=== PATIENT | female | born 1985 | race Asian ===

== ENCOUNTER 2018-05-06 04:00 | Observation (INO) | payer OTHER ==
[~2018-05-06] VITALS: Ht 152.4 cm; Wt 60.0 kg
[2018-05-06 05:08] LABS: BASOPHILS # (AUTO) 0.06 x10^3/uL (0-0.1); BASOPHILS % (AUTO) 1 % (0-1); EOSINOPHILS % (AUTO) 1 % (1-7); LYMPHOCYTES # (AUTO) 2.85 x10^3/uL (1-3.4); LYMPHOCYTES % (AUTO) 24 % (22-44); MD NO; MEAN CORPUSCULAR HGB CONC 34.7 g/dL (32.4-35.8); MEAN CORPUSCULAR VOLUME 89.3 fL (80-100); MONOCYTES # (AUTO) 0.61 x10^3/uL (0.2-0.8); MONOCYTES % (AUTO) 5 % (2-9); NEUTROPHILS # (AUTO) 8.45 x10^3/uL (1.8-6.8); NEUTROPHILS % (AUTO) 70 % (42-75); PLATELET COUNT 226 x10^3/uL (130-400); RED CELL DISTRIBUTION WIDTH 12.9 % (9.6-15.2)
== END 2018-05-06 08:27 | disposition home or self-care (01) ==
LOC: LDOP 04:00 → LDIP 05:28
PROVIDERS: ADMIT Obstetrics & Gynecology; ATTEND Obstetrics & Gynecology
DX: O46.93 Antepartum hemorrhage, unspecified, third trimester (principal); Z3A.28 28 weeks gestation of pregnancy
CPT/HCPCS: 36415; 59025; 76805; 85025; 86850; 86900; G0378

== ENCOUNTER 2018-06-13 11:43 | Inpatient (IN) | payer OTHER ==
[~2018-06-13] VITALS: Ht 152.4 cm; Wt 59.7 kg
[2018-06-13 11:50] VITALS: BP 106/58
[2018-06-13] MEDS ORDERED: BETAMETHASONE 6 MG/ML, 5ML IM ONE (12:07)
[2018-06-13] MEDS: BETAMETHASONE 6 MG/ML, 5ML IM SCH (12:14)
[2018-06-13 12:15] VITALS: BP 106/58
[2018-06-13 12:48] LABS: BASOPHILS # (AUTO) 0.03 x10^3/uL (0-0.1); BASOPHILS % (AUTO) 0 % (0-1); EOSINOPHILS # (AUTO) 0.02 x10^3/uL (0-0.4); EOSINOPHILS % (AUTO) 0 % (1-7); LYMPHOCYTES # (AUTO) 2.64 x10^3/uL (1-3.4); LYMPHOCYTES % (AUTO) 23 % (22-44); MD NO; MEAN CORPUSCULAR HGB CONC 34.1 g/dL (32.4-35.8); MEAN PLATELET VOLUME 6.9 fL (7.4-10.4); MONOCYTES # (AUTO) 0.64 x10^3/uL (0.2-0.8); MONOCYTES % (AUTO) 6 % (2-9); NEUTROPHILS # (AUTO) 8.21 x10^3/uL (1.8-6.8); NEUTROPHILS % (AUTO) 71 % (42-75); PLATELET COUNT 216 x10^3/uL (130-400); RED BLOOD COUNT 4.27 x10^6/uL (3.82-5.3); RED CELL DISTRIBUTION WIDTH 13.2 % (9.6-15.2)
[2018-06-13] MEDS ORDERED: DOCU-131 PO (12:52)
[2018-06-13] MEDS ORDERED: PREN1TAB60 PO (12:53)
[2018-06-13] MEDS ORDERED: [UNRECOGNIZED DRUG - MIXTURE] PO (12:55)
[2018-06-13] MEDS ORDERED: TERBUTALINE 1 MG/ML, 1ML ONE (13:52)
[2018-06-13] MEDS ORDERED: TERBUTALINE 1 MG/ML, 1ML SQ ONE (14:00)
[2018-06-13] MEDS ORDERED: LACTATED RINGERS 1,000 ML IVBOLUS ONE (14:00)
[2018-06-13] MEDS: SODIUM CHLORIDE FLUSH 3ML SYRINGE IVF SCH ×2 (14:16→21:00)
[2018-06-13] MEDS ORDERED: DOCUSATE 100 MG CAPSULE PO SCH (21:00)
[2018-06-13] MEDS ORDERED: DOCUSATE 100 MG CAPSULE ONE (22:33)
[2018-06-13] MEDS: DOCUSATE 100 MG CAPSULE PO SCH (22:50)
[2018-06-14] MEDS: SODIUM CHLORIDE FLUSH 3ML SYRINGE IVF SCH ×2 (07:25→20:34)
[2018-06-14 07:28] VITALS: BP 92/55
[2018-06-14] MEDS ORDERED: PRENATAL VIT/IRON/FA 1 EACH TABLET ONE (09:07)
[2018-06-14] MEDS: PRENATAL VIT/IRON/FA 1 EACH TABLET PO SCH (09:30)
[2018-06-14] MEDS: BETAMETHASONE 6 MG/ML, 5ML IM SCH (13:09)
[2018-06-14] MEDS: CAL MAG PO SCH (14:30)
[2018-06-14] MEDS ORDERED: INSULIN REGULAR 100 UNITS/ML, 3ML VIAL SQ-INSULIN STA (18:18)
[2018-06-14] MEDS ORDERED: ONDANSETRON 2MG/ML, 2ML IVPush PRN (18:30)
[2018-06-14] MEDS ORDERED: ACETAMINOPHEN 325 MG TABLET PO PRN (18:30)
[2018-06-14] MEDS ORDERED: CALCIUM CARBONATE 500 MG TAB.CHEW PO PRN (18:30)
[2018-06-14] MEDS: DOCUSATE 100 MG CAPSULE PO SCH (21:00)
[2018-06-15] MEDS ORDERED: PRENATAL VIT/IRON/FA 1 EACH TABLET PO SCH (09:00)
[2018-06-15] MEDS: PRENATAL VIT/IRON/FA 1 EACH TABLET PO SCH (09:00)
[2018-06-15] MEDS: SODIUM CHLORIDE FLUSH 3ML SYRINGE IVF SCH ×2 (09:00→21:00)
[2018-06-15] MEDS: DOCUSATE 100 MG CAPSULE PO SCH (21:00)
[2018-06-16] MEDS: CAL MAG PO SCH (09:00)
[2018-06-16] MEDS: PRENATAL VIT/IRON/FA 1 EACH TABLET PO SCH (09:00)
[2018-06-16] MEDS: SODIUM CHLORIDE FLUSH 3ML SYRINGE IVF SCH ×2 (09:56→21:00)
[2018-06-16] MEDS: POLYETHYLENE GLYCOL 17 GM PACKET PO SCH (09:59)
[2018-06-16 20:11] VITALS: BP 102/54
[2018-06-16] MEDS: DOCUSATE 100 MG CAPSULE PO SCH (21:00)
[2018-06-17] MEDS: DOCUSATE 100 MG CAPSULE PO SCH (21:00)
[2018-06-17] MEDS: SODIUM CHLORIDE FLUSH 3ML SYRINGE IVF SCH ×2 (21:00→21:05)
[2018-06-17] MEDS ORDERED: DOCUSATE 100 MG CAPSULE ONE (21:09)
[2018-06-18] MEDS: SODIUM CHLORIDE FLUSH 3ML SYRINGE IVF SCH ×2 (08:52→21:13)
[2018-06-18] MEDS: PRENATAL VIT/IRON/FA 1 EACH TABLET PO SCH (08:53)
[2018-06-18 08:55] VITALS: BP 114/57
[2018-06-18] MEDS: POLYETHYLENE GLYCOL 17 GM PACKET PO SCH ×2 (09:00→09:18)
[2018-06-18] MEDS: CAL MAG PO SCH (09:00)
[2018-06-18] MEDS: DOCUSATE 100 MG CAPSULE PO SCH (09:41)
[2018-06-18] MEDS: SODIUM CHLORIDE NASAL SPRAY 45ML BOTTLE NAS PRN (15:37)
[2018-06-18 20:00] VITALS: BP 110/56
[2018-06-19 02:47] LABS: BASOPHILS # (AUTO) 0.04 x10^3/uL (0-0.1); BASOPHILS % (AUTO) 0 % (0-1); EOSINOPHILS # (AUTO) 0.06 x10^3/uL (0-0.4); EOSINOPHILS % (AUTO) 1 % (1-7); LYMPHOCYTES # (AUTO) 3.22 x10^3/uL (1-3.4); LYMPHOCYTES % (AUTO) 26 % (22-44); MD NO; MEAN CORPUSCULAR HEMOGLOBIN 30.2 pg (27.0-34.8); MEAN CORPUSCULAR HGB CONC 34.6 g/dL (32.4-35.8); MEAN CORPUSCULAR VOLUME 87.3 fL (80-100); MEAN PLATELET VOLUME 6.7 fL (7.4-10.4); MONOCYTES # (AUTO) 0.75 x10^3/uL (0.2-0.8); MONOCYTES % (AUTO) 6 % (2-9); NEUTROPHILS % (AUTO) 67 % (42-75); PLATELET COUNT 276 x10^3/uL (130-400); RED CELL DISTRIBUTION WIDTH 12.9 % (9.6-15.2)
[2018-06-19] MEDS ORDERED: LACTATED RINGERS 1,000 ML IV SCH (04:00)
[2018-06-19] MEDS: CAL MAG PO SCH (09:00)
[2018-06-19] MEDS ORDERED: METOCLOPRAMIDE 5 MG/ML, 2ML ONE (19:13)
[2018-06-19] MEDS ORDERED: SODIUM CITRATE/CITRIC ACID 30 ML UDC ONE (19:13)
[2018-06-19] MEDS: SODIUM CHLORIDE FLUSH 3ML SYRINGE IVF SCH (19:15)
[2018-06-19 19:18] VITALS: BP 110/54
[2018-06-20] MEDS: SODIUM CHLORIDE NASAL SPRAY 45ML BOTTLE NAS PRN (07:00)
[2018-06-20] MEDS: SODIUM CHLORIDE FLUSH 3ML SYRINGE IVF SCH ×2 (07:41→21:00)
[2018-06-20 07:45] VITALS: BP 110/64
[2018-06-20] MEDS: CAL MAG PO SCH ×2 (09:00→17:52)
[2018-06-20] MEDS: POLYETHYLENE GLYCOL 17 GM PACKET PO SCH (09:00)
[2018-06-20] MEDS: PRENATAL VIT/IRON/FA 1 EACH TABLET PO SCH ×2 (09:00→09:08)
[2018-06-20] MEDS ORDERED: SENNA/DOCUSATE TABLET ONE (10:47)
[2018-06-20] MEDS: SENNA/DOCUSATE TABLET PO SCH (10:54)
[2018-06-20 12:17] VITALS: BP 119/60
[2018-06-20 17:48] VITALS: BP 105/51
[2018-06-20] MEDS ORDERED: DOCUSATE 100 MG CAPSULE ONE (20:49)
[2018-06-20] MEDS: DOCUSATE 100 MG CAPSULE PO SCH (20:53)
[2018-06-21] MEDS ORDERED: DOCUSATE 100 MG CAPSULE ONE ×2 (08:27→20:38)
[2018-06-21] MEDS: DOCUSATE 100 MG CAPSULE PO SCH ×2 (08:31→20:58)
[2018-06-21] MEDS: PRENATAL VIT/IRON/FA 1 EACH TABLET PO SCH ×2 (08:34→09:00)
[2018-06-21 08:39] VITALS: BP 115/56
[2018-06-21] MEDS: SODIUM CHLORIDE FLUSH 3ML SYRINGE IVF SCH ×3 (08:40→20:59)
[2018-06-21] MEDS: POLYETHYLENE GLYCOL 17 GM PACKET PO SCH (09:00)
[2018-06-21] MEDS: CAL MAG PO SCH (09:00)
[2018-06-21 19:22] VITALS: BP 109/64
[2018-06-21] MEDS ORDERED: SENNA/DOCUSATE TABLET ONE (20:39)
[2018-06-22 01:32] VITALS: BP 108/57
[2018-06-22 05:54] VITALS: BP 106/55
[2018-06-22] MEDS ORDERED: DOCUSATE 100 MG CAPSULE ONE ×2 (08:52→20:53)
[2018-06-22] MEDS ORDERED: SENNA/DOCUSATE TABLET ONE (08:52)
[2018-06-22] MEDS: SENNA/DOCUSATE TABLET PO SCH (08:56)
[2018-06-22] MEDS: DOCUSATE 100 MG CAPSULE PO SCH ×2 (08:56→20:58)
[2018-06-22] MEDS: PRENATAL VIT/IRON/FA 1 EACH TABLET PO SCH (09:00)
[2018-06-22] MEDS: POLYETHYLENE GLYCOL 17 GM PACKET PO SCH (09:00)
[2018-06-22] MEDS: CAL MAG PO SCH (09:00)
[2018-06-22] MEDS: SODIUM CHLORIDE FLUSH 3ML SYRINGE IVF SCH (21:00)
[2018-06-23] MEDS: LACTATED RINGERS 1,000 ML IV SCH ×3 (02:43→22:43)
[2018-06-23] MEDS: OXYTOCIN 30U/ 0.9% NaCL 500ML 500 ML IV SCH ×3 (02:43→22:43)
[2018-06-23] MEDS ORDERED: LACTATED RINGERS 1,000 ML IV SCH ×5 (02:43→03:00)
[2018-06-23] MEDS ORDERED: OXYTOCIN 30U/ 0.9% NaCL 500ML 500 ML IV SCH ×2 (02:46→02:55)
[2018-06-23] MEDS ORDERED: FENTANYL PF 100 MCG/2ML ONE (02:52)
[2018-06-23] MEDS ORDERED: ACETAMINOPHEN 325 MG TABLET PO PRN ×2 (03:00)
[2018-06-23] MEDS ORDERED: DIPH,PERTUSS(ACELL),TET VAC/PF NC IM-VACC PRN (03:00)
[2018-06-23] MEDS ORDERED: ONDANSETRON 2MG/ML, 2ML IV PRN ×2 (03:00→04:30)
[2018-06-23] MEDS ORDERED: OXYcodone/APAP 5/325MG TABLET PO PRN (03:00)
[2018-06-23] MEDS ORDERED: SODIUM CITRATE/CITRIC ACID 30 ML UDC PO ONE ×2 (03:00)
[2018-06-23] MEDS ORDERED: morphine SULFATE 10 MG/ML, 1ML IVPush PRN ×2 (03:00)
[2018-06-23] MEDS ORDERED: MEASLES,MUMPS&RUBELLA VACC/PF 0.5 ML SQ-VACC PRN (03:00)
[2018-06-23] MEDS ORDERED: METOCLOPRAMIDE 5 MG/ML, 2ML IV ONE ×2 (03:00)
[2018-06-23] MEDS ORDERED: MISOPROSTOL 200 MCG TABLET SL PRN (03:00)
[2018-06-23] MEDS ORDERED: LACTATED RINGERS 1,000 ML IVBOLUS ONE ×2 (03:00)
[2018-06-23] MEDS ORDERED: CALCIUM CARBONATE 500 MG TAB.CHEW PO PRN (03:00)
[2018-06-23] MEDS ORDERED: SIMETHICONE 80 MG CHEW TAB PO PRN (03:00)
[2018-06-23 03:14] LABS: BASOPHILS # (AUTO) 0.05 x10^3/uL (0-0.1); BASOPHILS % (AUTO) 0 % (0-1); EOSINOPHILS % (AUTO) 1 % (1-7); LYMPHOCYTES # (AUTO) 3.47 x10^3/uL (1-3.4); LYMPHOCYTES % (AUTO) 26 % (22-44); MD NO; MEAN CORPUSCULAR HEMOGLOBIN 30.3 pg (27.0-34.8); MEAN CORPUSCULAR HGB CONC 34.7 g/dL (32.4-35.8); MEAN CORPUSCULAR VOLUME 87.1 fL (80-100); MEAN PLATELET VOLUME 6.6 fL (7.4-10.4); MONOCYTES # (AUTO) 0.84 x10^3/uL (0.2-0.8); MONOCYTES % (AUTO) 6 % (2-9); NEUTROPHILS % (AUTO) 66 % (42-75); PLATELET COUNT 251 x10^3/uL (130-400); RED BLOOD COUNT 4.22 x10^6/uL (3.82-5.3); RED CELL DISTRIBUTION WIDTH 13.2 % (9.6-15.2)
[2018-06-23] MEDS ORDERED: OXYTOCIN 30U/ 0.9% NaCL 500ML 500 ML ONE (03:14)
[2018-06-23] MEDS ORDERED: TRANEXAMIC ACID 100 MG/ML, 10ML ONE (03:28)
[2018-06-23] MEDS ORDERED: EPHEDRINE 50 MG/ML, 1ML ONE (03:38)
[2018-06-23] MEDS ORDERED: OXYTOCIN 10 UNITS/ML, 1ML ONE (03:38)
[2018-06-23] MEDS ORDERED: CEFAZOLIN 1,000 MG ONE (03:38)
[2018-06-23] MEDS ORDERED: ONDANSETRON 2MG/ML, 2ML ONE (04:20)
[2018-06-23] MEDS ORDERED: FENTANYL PF 100 MCG/2ML IV PRN (04:30)
[2018-06-23] MEDS ORDERED: DIPHENHYDRAMINE 50 MG/ML, 1ML IVPush PRN (04:30)
[2018-06-23] MEDS ORDERED: MEPERIDINE/PF 25MG/0.5ML IVPush PRN (04:30)
[2018-06-23] MEDS ORDERED: MORPHINE SULFATE 4 MG/ML, 1ML IVPush PRN (04:30)
[2018-06-23] MEDS ORDERED: OXYcodone 5 MG/5 ML ORAL.SOL UDC PO PRN (04:30)
[2018-06-23 06:30] VITALS: BP 98/66
[2018-06-23 06:45] VITALS: BP 90/55
[2018-06-23] MEDS: KETOROLAC 30 MG/1 ML IV SCH ×3 (07:37→20:14)
[2018-06-23] MEDS: CAL MAG PO SCH (08:46)
[2018-06-23] MEDS: PRENATAL VIT/IRON/FA 1 EACH TABLET PO SCH ×2 (08:47→09:00)
[2018-06-23] MEDS: POLYETHYLENE GLYCOL 17 GM PACKET PO SCH (08:48)
[2018-06-23] MEDS: DOCUSATE 100 MG CAPSULE PO SCH ×2 (08:48→20:12)
[2018-06-23] MEDS: OXYcodone/APAP 5/325MG TABLET PO PRN ×3 (11:53→22:11)
[2018-06-23 11:59] VITALS: BP 94/57
[2018-06-23 12:00] LABS: BASOPHILS # (AUTO) 0.03 x10^3/uL (0-0.1); BASOPHILS % (AUTO) 0 % (0-1); EOSINOPHILS # (AUTO) 0.03 x10^3/uL (0-0.4); EOSINOPHILS % (AUTO) 0 % (1-7); LYMPHOCYTES # (AUTO) 2.64 x10^3/uL (1-3.4); LYMPHOCYTES % (AUTO) 19 % (22-44); MD NO; MEAN CORPUSCULAR HGB CONC 35.3 g/dL (32.4-35.8); MEAN CORPUSCULAR VOLUME 87.6 fL (80-100); MEAN PLATELET VOLUME 6.4 fL (7.4-10.4); MONOCYTES # (AUTO) 0.91 x10^3/uL (0.2-0.8); MONOCYTES % (AUTO) 7 % (2-9); NEUTROPHILS # (AUTO) 10.24 x10^3/uL (1.8-6.8); NEUTROPHILS % (AUTO) 74 % (42-75); PLATELET COUNT 219 x10^3/uL (130-400); RED BLOOD COUNT 3.42 x10^6/uL (3.82-5.3); RED CELL DISTRIBUTION WIDTH 13.4 % (9.6-15.2)
[2018-06-23 16:00] VITALS: BP 94/52
[2018-06-23 19:20] VITALS: BP 94/58
[2018-06-24] MEDS: KETOROLAC 30 MG/1 ML IV SCH ×4 (03:23→21:16)
[2018-06-24 03:30] VITALS: BP 103/67
[2018-06-24 06:55] VITALS: BP 96/62
[2018-06-24] MEDS: PRENATAL VIT/IRON/FA 1 EACH TABLET PO SCH ×2 (08:38→09:00)
[2018-06-24] MEDS: DOCUSATE 100 MG CAPSULE PO SCH ×2 (08:39→21:00)
[2018-06-24] MEDS: LACTATED RINGERS 1,000 ML IV SCH ×2 (08:43→18:43)
[2018-06-24] MEDS: OXYTOCIN 30U/ 0.9% NaCL 500ML 500 ML IV SCH ×2 (08:43→18:43)
[2018-06-24] MEDS: CAL MAG PO SCH (09:00)
[2018-06-24] MEDS: POLYETHYLENE GLYCOL 17 GM PACKET PO SCH (09:00)
[2018-06-24] MEDS: OXYcodone/APAP 5/325MG TABLET PO PRN ×2 (10:18→18:00)
[2018-06-24 19:55] VITALS: BP 122/66
[2018-06-24] MEDS: DOCUSATE 100 MG CAPSULE PO PRN (21:16)
[2018-06-24] MEDS ORDERED: IBUPROFEN 200 MG TABLET PO PRN (23:30)
[2018-06-25] MEDS: OXYcodone/APAP 5/325MG TABLET PO PRN ×3 (00:16→08:40)
[2018-06-25] MEDS: IBUPROFEN 600 MG TABLET PO PRN ×4 (00:16→20:58)
[2018-06-25] MEDS: OXYTOCIN 30U/ 0.9% NaCL 500ML 500 ML IV SCH ×2 (04:43→15:15)
[2018-06-25] MEDS: LACTATED RINGERS 1,000 ML IV SCH ×2 (04:43→15:14)
[2018-06-25 07:30] VITALS: BP 92/60
[2018-06-25] MEDS: PRENATAL VIT/IRON/FA 1 EACH TABLET PO SCH ×3 (08:27→08:32)
[2018-06-25] MEDS: CAL MAG PO SCH (08:31)
[2018-06-25] MEDS: DOCUSATE 100 MG CAPSULE PO SCH (08:40)
[2018-06-25] MEDS ORDERED: ACETAMINOPHEN 325 MG TABLET PO PRN ×2 (14:00→15:00)
[2018-06-25] MEDS: OXYcodone IR 5MG TABLET PO PRN ×2 (14:00→18:38)
[2018-06-25] MEDS: POLYETHYLENE GLYCOL 17 GM PACKET PO SCH (14:00)
[2018-06-25] MEDS: ACETAMINOPHEN 325 MG TABLET PO SCH ×2 (15:30→20:58)
[2018-06-25 20:00] VITALS: BP 105/69
[2018-06-25] MEDS: DOCUSATE 100 MG CAPSULE PO PRN (20:58)
[2018-06-26] MEDS: OXYTOCIN 30U/ 0.9% NaCL 500ML 500 ML IV SCH (00:43)
[2018-06-26] MEDS: LACTATED RINGERS 1,000 ML IV SCH (00:43)
[2018-06-26] MEDS: OXYcodone IR 5MG TABLET PO PRN ×3 (01:11→13:19)
[2018-06-26] MEDS ORDERED: DOCU-131 PO (03:57)
[2018-06-26] MEDS ORDERED: IBUP-1222 PO (03:58)
[2018-06-26] MEDS ORDERED: OXYC-302 PO (03:59)
[2018-06-26] MEDS: IBUPROFEN 600 MG TABLET PO PRN ×4 (04:34→23:17)
[2018-06-26] MEDS: ACETAMINOPHEN 325 MG TABLET PO SCH ×4 (04:34→23:18)
[2018-06-26 08:22] VITALS: BP 109/75
[2018-06-26] MEDS: PRENATAL VIT/IRON/FA 1 EACH TABLET PO SCH (09:00)
[2018-06-26] MEDS: DOCUSATE 100 MG CAPSULE PO PRN ×2 (10:16→23:18)
[2018-06-26 19:45] VITALS: BP 106/71
[2018-06-27] MEDS: OXYcodone IR 5MG TABLET PO PRN (03:43)
[2018-06-27] MEDS: IBUPROFEN 600 MG TABLET PO PRN ×2 (05:44→12:16)
[2018-06-27] MEDS: ACETAMINOPHEN 325 MG TABLET PO SCH ×2 (05:46→12:16)
[2018-06-27 07:40] VITALS: BP 118/76
[2018-06-27] MEDS: DOCUSATE 100 MG CAPSULE PO PRN (08:48)
[2018-06-27] MEDS: PRENATAL VIT/IRON/FA 1 EACH TABLET PO SCH (09:00)
== END 2018-06-27 16:35 | disposition home or self-care (01) | DRG 765 ==
LOC: LDOP 11:43 → LDIP 14:36 → 2NW 06-23 06:15
PROVIDERS: ADMIT Obstetrics & Gynecology; ATTEND Obstetrics & Gynecology
PROC: 10D00Z1 Extraction of Products of Conception, Low, Open Approach (ICD-10-PCS; principal; 2018-06-23)
DX: O24.410 Gestational diabetes mellitus in pregnancy, diet controlled (principal); O44.13 Complete placenta previa with hemorrhage, third trimester; O98.413 Viral hepatitis complicating pregnancy, third trimester; B18.1 Chronic viral hepatitis B without delta-agent; O32.1XX0 Maternal care for breech presentation, not applicable or unspecified; O99.283 Endocrine, nutritional and metabolic diseases complicating pregnancy, third trimester; Z3A.36 36 weeks gestation of pregnancy; E28.2 Polycystic ovarian syndrome; Z37.0 Single live birth
CPT/HCPCS: 36415; 76805; 82803; 82962; 85025; 86850; 86900; 86923; G0378; J0690; J0702; J1815; J1885; J2405; J3010; J2590; J2765; J3105; J7120